=== PATIENT | male | born 1980 | race Caucasian/White ===

== ENCOUNTER 2024-10-11 09:17 | Emergency (ER) | payer OTHER ==
[2024-10-11] MEDS ORDERED: Ketorolac Tromethamine 30 MG (1 mL) VIAL ONE (09:42)
[2024-10-11 10:16] LABS: #Basophils 0.07 10x3/uL (0.0-0.2); %Basophils 1.1 % (0.0-1.0); %Eosinophils 2.6 % (0.0-10.0); %Lymphocytes 19.5 % (21.0-51.0); %Monocytes 6.4 % (0.0-10.0); %Neutrophils 69.9 % (42.0-75.0); Hematocrit 42.5 % (42.0-52.0); Hemoglobin 14.6 g/dL (14.0-18.0); Mean Corpuscular HGB CONC 34.4 g/dL (32.0-36.0); Mean Corpuscular Hemoglobin 30.9 pg (27.0-31.0); Mean Corpuscular Volume 89.9 fL (78.0-98.0); Mean Platelet Volume 8.8 fL (7.4-10.4); Platelet Count 289 10x3/uL (130-400); RBC Distribution Width 11.5 % (11.5-14.5); Red Blood Cell (RBC) Count 4.73 mill/uL (4.70-6.10)
[2024-10-11 10:31] LABS: ALT (SGPT) 26 U/L (Less than 45); AST (SGOT) 24 U/L (11-34); Albumin 4.5 g/dL (3.1-4.5); Alkaline Phosphatase 53 U/L (40-110); Anion Gap 13 mmol/L (10-20); BUN (Urea Nitrogen) 10 mg/dL (8.9-20.6); Bilirubin, Total 0.5 mg/dL (0.3-1.2); Calc. Creatinine Clearance 0 mL/min (70-130); Calcium 9.8 mg/dL (7.8-10.44); Carbon Dioxide 27 mmol/L (22-29); Chloride 105 mmol/L (98-107); Estimated GFR 92; Globulin 3.6 g/dL (2.4-3.5); Glucose 96 mg/dL (70-105); Potassium 4.7 mmol/L (3.5-5.1); Protein, Total 8.1 g/dL (6.0-8.3); Sodium 140 mmol/L (136-145)
[2024-10-11 10:36] LABS: Troponin I 0.016 ng/mL (< 0.028)
== END 2024-10-11 12:40 ==
LOC: EEVIPCON 09:17 → ERS 09:17
DX: S46.911A Strain of unspecified muscle, fascia and tendon at shoulder and upper arm level, right arm, initial encounter (principal); X58.XXXA Exposure to other specified factors, initial encounter
CPT/HCPCS: 36415; 71045; 80053; 84484; 85025; 93005; 96372; J1885